=== PATIENT | female | born 1940 | race Two or more races ===

== ENCOUNTER 2020-03-27 20:49 | Inpatient (IN) | payer OTHER ==
[~2020-03-27] VITALS: Ht 157.5 cm; Wt 71.7 kg
[2020-03-27 22:38] LABS: Basophils # (auto) 0.1 10 ^3/uL (0-0.2); Basophils % (auto) 0.9 % (0.0-2.0); Eosinophils # (auto) 0.3 10 ^3/uL (0-0.8); Eosinophils % (auto) 4.4 % (0.0-7.0); Hematocrit 37.2 % (36.0-46.0); Hemoglobin 12.6 g/dL (12.2-16.2); Lymphocytes # (auto) 2.3 10 ^3/uL (0.4-5.4); Lymphocytes % (auto) 30.4 % (10.0-50.0); Mean Corpuscular Hgb Conc. 33.9 g/dL (32.0-36.0); Mean Corpuscular Volume 88.3 fL (80.0-100.0); Monocytes # (auto) 0.6 10 ^3/uL (0-1.3); Monocytes % (auto) 7.6 % (0.0-12.0); Neutrophils # (auto) 4.3 10 ^3/uL (1.6-8.6); Neutrophils % (auto) 56.7 % (37.0-80.0); Nucleated Red Blood Cells % 0.1 %; Red Blood Cells 4.21 10^6/uL (4.0-5.20); Red Cell Distribution Width 13.2 % (11.8-14.3); White Blood Cell 7.6 10^3/uL (4.4-10.8)
[2020-03-27 22:55] LABS: Albumin 3.4 g/dL (3.4-5.0); Anion Gap 4 (5-15); Blood Urea Nitrogen 12 mg/dL (7-18); Calcium 9.2 mg/dL (8.5-10.1); Carbon Dioxide 31 mmol/L (21-32); Chloride 106 mmol/L (98-107); Glucose 139 mg/dL (74-106); Magnesium 2.1 mg/dL (1.6-2.6); Potassium 3.7 mmol/L (3.5-5.1); Sodium 141 mmol/L (136-145)
[2020-03-27 23:00] LABS: INR 0.97 (0.9-1.15); Partial Thromboplastin Time 26.5 sec (23.0-31.2)
[2020-03-27 23:02] LABS: Alanine Aminotransferase 36 U/L (13-56); Alkaline Phosphatase 75 U/L (45-117); Aspartate Aminotransferase 25 U/L (15-37); Bilirubin, Total 0.4 mg/dL (0.2-1.0); GFR African American 117 mL/min; GFR Non-African American 97 mL/min; Total Protein 7.4 g/dL (6.4-8.2)
[2020-03-27 23:15] LABS: Urine Bacteria FEW /hpf (None Seen); Urine Blood Negative /uL (Negative); Urine Mucus FEW (None Seen); Urine Specific Gravity 1.008 (1.001-1.035); Urine WBC 17 /hpf (0 - 5)
[2020-03-27 23:35] VITALS: BP 152/70
[2020-03-28] MEDS ORDERED: cefTRIAXone 1GM/50ML D5W 50 ML IV ONE
[2020-03-28] MEDS ORDERED: TEMAZEPAM 15 MG CAP PO PRN (03:00)
[2020-03-28] MEDS ORDERED: cloNIDine HCL 0.1 MG TAB PO PRN (03:00)
[2020-03-28] MEDS ORDERED: ACETAMINOPHEN 325 MG TAB PO PRN (03:00)
[2020-03-28] MEDS ORDERED: NITROGLYCERIN 0.4 MG SL TAB SL PRN (03:00)
[2020-03-28] MEDS ORDERED: ONDANSETRON HCL 4 MG/2 ML VIAL IV PRN (03:00)
[2020-03-28] MEDS ORDERED: MORPHINE SULFATE INJECTION 2 MG/ML SYRG IV PRN (03:00)
[2020-03-28] MEDS ORDERED: FAMOTIDINE 20 MG TAB PO SCH (10:00)
[2020-03-28] MEDS ORDERED: ENOXAPARIN SOD 40 MG/0.4 ML SYRINGE SC SCH (10:00)
[2020-03-28] MEDS ORDERED: NITROFURANTOIN 100 mg CAP PO SCH (10:00)
== END 2020-03-28 09:13 | disposition left against medical advice (07) | DRG 312 ==
LOC: ER 20:50 → TELE 20:51
PROVIDERS: ADMIT Nurse Practitioner; ATTEND Nurse Practitioner
DX: R55 Syncope and collapse (principal); N39.0 Urinary tract infection, site not specified; I10 Essential (primary) hypertension; K57.90 Diverticulosis of intestine, part unspecified, without perforation or abscess without bleeding; M51.36 Other intervertebral disc degeneration, lumbar region; Z88.6 Allergy status to analgesic agent; Z88.5 Allergy status to narcotic agent; Z88.8 Allergy status to other drugs, medicaments and biological substances; Z86.718 Personal history of other venous thrombosis and embolism; M41.86 Other forms of scoliosis, lumbar region; Z20.822 Contact with and (suspected) exposure to COVID-19
CPT/HCPCS: 36415; 70450; 71045; 74176; 80053; 81001; 81025; 83605; 83735; 83880; 84484; 85025; 85610; 85730; 87040; 87426; 93005; 93886; G0378

== ENCOUNTER 2023-05-25 11:18 | Emergency (ER) | payer OTHER ==
[~2023-05-25] VITALS: Ht 157.5 cm; Wt 77.3 kg
[2023-05-25 11:44] VITALS: PULSE 69; RESP 16; O2SAT 94
[2023-05-25 12:01] LABS: Basophils # (auto) 0 10 ^3/uL (0-0.2); Basophils % (auto) 0.7 % (0.0-2.0); Eosinophils # (auto) 0.3 10 ^3/uL (0-0.8); Eosinophils % (auto) 3.9 % (0.0-7.0); Hematocrit 33.6 % (36.0-46.0); Hemoglobin 10.9 g/dL (12.2-16.2); Lymphocytes # (auto) 1.6 10 ^3/uL (0.4-5.4); Lymphocytes % (auto) 22.5 % (10.0-50.0); Mean Corpuscular Hemoglobin 26.2 pg (28.0-32.0); Mean Corpuscular Hgb Conc. 32.5 g/dL (32.0-36.0); Mean Corpuscular Volume 80.5 fL (80.0-100.0); Monocytes # (auto) 0.4 10 ^3/uL (0-1.3); Monocytes % (auto) 5.4 % (0.0-12.0); Neutrophils # (auto) 4.8 10 ^3/uL (1.6-8.6); Neutrophils % (auto) 67.5 % (37.0-80.0); Red Blood Cells 4.18 10^6/uL (4.0-5.20); Red Cell Distribution Width 15.1 % (11.8-14.3); White Blood Cell 7.1 10^3/uL (4.4-10.8)
[2023-05-25 12:09] LABS: Chloride 109 mmol/L (98-107); Potassium 4.1 mmol/L (3.5-5.1); Sodium 141 mmol/L (136-145)
[2023-05-25 12:11] LABS: Calcium 9.9 mg/dL (8.5-10.1)
[2023-05-25 12:16] LABS: BUN/Creatinine Ratio 28.6 (10.0-20.0); Blood Urea Nitrogen 16 mg/dL (9-23); Glucose 118 mg/dL (74-106)
[2023-05-25 12:36] LABS: Anion Gap 4 (5-15); Carbon Dioxide 28 mmol/L (20-30)
[2023-05-25 12:38] LABS: INR 1.06 (0.9-1.15); Partial Thromboplastin Time 26.7 SEC (24.5-34.5); Prothrombin Time 11.1 sec (9.3-11.8)
[2023-05-25] MEDS: ONDANSETRON HCL 4 MG/2 ML VIAL IV ONE (14:30)
[2023-05-25] MEDS: MORPHINE SULFATE 4 MG/ML SYR/VIAL IV ONE (14:31)
[2023-05-25 17:01] VITALS: BP 122/57; PULSE 71; RESP 20; TEMP 98.1; O2SAT 97
== END 2023-05-25 17:54 | disposition short-term general hospital (02) ==
LOC: EDBD 11:18 → ER 11:18
DX: S72.142A Displaced intertrochanteric fracture of left femur, initial encounter for closed fracture (principal); R07.89 Other chest pain; I10 Essential (primary) hypertension; E78.5 Hyperlipidemia, unspecified; Z88.1 Allergy status to other antibiotic agents; Z88.8 Allergy status to other drugs, medicaments and biological substances; W18.39XA Other fall on same level, initial encounter; Y93.89 Activity, other specified; Y92.89 Other specified places as the place of occurrence of the external cause; Y99.8 Other external cause status
CPT/HCPCS: 36415; 71045; 73502; 80048; 85025; 85610; 85730; 96374; 96375; 99285; J2270; J2405